=== PATIENT | male | born 1950 | race Caucasian/White ===

== ENCOUNTER → 2021-12-26 | Outpatient (CLI) | payer SELFPAY ==
--- NOTE | 2021-12-26 10:12 | Diagnostic Imaging Report ---
INDICATION: Coronary artery disease screening. CT cardiac calcium score performed with noncontrast images of the heart followed by calculation of calcium scoring. There is no prior study for comparison. Dose reduction protocol was used There are no enlarged nodes in the mediastinum. The aorta showed normal caliber. The visualized portions of the lung ayoub are clear. The entirety of the lungs are not included on the study. There is a dense area of calcified plaquing in the region of the left main coronary artery. There is some mild plaquing in the left circumflex coronary. Remaining vessels did not show calcification. Calcium score for left main was 228.8. Calcium score for the circumflex coronary artery was 13.5. Total score was 242.3. IMPRESSION: Overall cardiac calcium score was 242.3, compatible with moderate plaque burden. However, the majority of the calcium appears to be in the left main coronary artery. Consider conventional angiography as clinically warranted. Dictated by: Dictated on workstation # [id number]
== END ==
LOC: RAD FS 08:25
PROVIDERS: ATTEND Family Medicine
DX: Z00.00 Encounter for general adult medical examination without abnormal findings (principal); Z13.6 Encounter for screening for cardiovascular disorders
CPT/HCPCS: 75571